=== PATIENT | female | born 1965 | race Caucasian/White ===

== ENCOUNTER 2018-10-05 09:17 | Day surgery (SDC) | payer BC, SELFPAY ==
[2018-10-05] VITALS (7 sets, daily range): BP systolic 107–131; BP diastolic 68–87; PULSE 67–87; RESP 16–18; TEMP 36.8–37; O2SAT 96–99; BMI 36.5
--- NOTE | 2018-10-05 09:42 | HP.PCM_ITS ---
History of Present Illness Date of Admission: 10/05/18 The patient is a 52 year old F here for screening colonoscopy. The patient reports no abdominal pain or blood in her stools. She has never had a colonoscopy in the past. She denies any family history of colon cancer. Past Medical/Surgical History - Planned Operation Planned Operative Procedure/s: COLONOSCOPY OPEN ACCESS Date of Operative Procedure: 10/05/18 Permit Signed: No S.O.S: No Is This Patient Having a Total Joint: No - Previous Hospitalizations/Surgeries HX Hospitalizations: No HX of Surgeries: CSECTION X3/TUBAL LIGATION Any Problems With Anesthesia: Yes - NAUSEA You/Your Family Experience Fever (Hyperthermia) With Anes: No Cholinesterase deficiency: No - Cardiovascular Hx Chest Pain within Last 2 months: No Hx of Irregular Heartbeat and/or Afib: No Hx Heart Attack: No Hx Congestive Heart Failure: No Hx Rheumatic Fever: No Hx Hypertension: No Hx Internal Defibrillator: No Hx Pacemaker: No Hx Cardiac Catheterization: No Hx Cardiac Surgery/Stents/Etc.: No Hx Stress Test: No HX Edema: Yes - ANKLE OCC Hx Pain in Legs when Walking/Leg Cramps: No - Respiratory Chronic Cough: No HX of Shortness of Breath: No Hoarseness: No Hx Chronic Obstructive Pulmonary Disease (COPD): No Hx Asthma: No Hx Emphysema: No Hx Sleep Apnea: No Hx Oxygen Use at Home: No Hx Respiratory Tract Infection/Cold (presently): No Do You Snore Loudly (louder than talking or can be heard): No Do You Often Feel Tired/ Fatigued/ Sleepy Dring Daytime?: No Has Anyone Observed You Stop Breathing During Sleep?: No Result (for STOP score): Negative Hx Smoking: No Smoking Status: Never smoker - Gastrointestinal Hx Gastroesophageal Reflux: No Hx Gastrointestinal Disorders: No Hx Gastrointestinal Bleed: No Hx Ulcer: No Hx Hiatal Hernia: No Difficulty Chewing/Swallowing: No Recent Onset of Swallowing Problems: No Special diet followed at home: No Hx Unplanned Weight Loss of 20#: No HX Unplanned Weight Gain of 20#: No - Neurological Hx Seizures: No HX Syncope/Blackout Spells/Unconsciousness: No Hx CVA/Stroke: No Hx Transient Ischemic Attacks (TIA): No Hx Multiple Sclerosis: No Hx Parkinson's Disease: No Hx Head/Neck Injury: No Hx Headaches: No Hx Back Injury/Pain: No Recent Onset of Speech Difficulty: No Restless Legs: No Does patient have nerve stimulator: No Patient instructed to have device shut off: No Rep notified?: No - Blood Disorder Hx Leukemia: No Bleeding Tendencies: No Hx Deep Vein Thrombosis: No Hx High Cholesterol: No Blood Transmitted Disease: No Hx Hepatitis: No Hx Cirrhosis: No Hx Anemia: No Hx Blood Disorders: No - Reproduction : No Is Patient Lactating: No Hx Hysterectomy: No Hx Tubal Ligation: Yes Are You Post Menopause: No - Genitourinary Hx Renal Disease: No - ONLY CHILD - Musculoskeletal Hx Arthritis: No Hx Rheumatoid Arthritis: No Hx Gout: No Recent Onset of an Orthopedic Problem: No - Endocrine Hx Diabetes: No Thyroid Disease: No Hx Steroid Therapy: No - Psycho/Social Hx Substance Use: No Hx Alcohol Use: No Hx Anxiety: Yes - IN THE PAST Hx Depression: Yes - IN THE PAST Mental Illness: No Hx Dementia: No - Miscellaneous Hx Cancer: No Recent Exposure to Contagious Disease: No Active MRSA: No Hx of C-Diff: No Any Loose Teeth: No Allergies No Known Allergies Allergy (Verified 10/04/18 15:12) - Discharge Is Pt Admitted From a [facility], or a Detention: No Who Could Help: FAMILY After D/C, Where Do you Plan to Go: Return Home - Physical Exam General: Alert, Oriented x3 Lungs: Normal air movement Cardiovascular: Regular rate, Regular Rhythm Abdomen: Soft, Non Tender, Non-Distended Assessment/Plan 52-year-old female for screening colonoscopy I explained endoscopy in detail to the patient. I explained the risks including but not limited to stroke or heart attack with anesthesia, perforation of the GI tract, bleeding, infection. I explained that any of these could necessitate further emergency surgery. The patient understands and all questions were answered sufficiently. The patient wishes to proceed with procedure. Denzel Donovan MD Pager: [facility] [address] [place] [address] [address] [place] [address] Office: Surgery Risks - Colonoscopy Risks Include but are not Limited To: Risks include but are not limited to: Bleeding, perforation requiring further surgery, inability to complete colonoscopy requiring barium enema.
--- NOTE | 2018-10-05 10:19 | OP.ENDO_ITS ---
Patient Name: Aleisha Azar Procedure Date: 10/05/2018 9:40 AM Date of : 1965 Age: 52 Procedure: Colonoscopy Indications: Screening for colorectal malignant neoplasm Providers: Denzel Donovan MD Medicines: Monitored Anesthesia Care Patient Profile: This is a 52 year old female. Refer to note in patient chart for documentation of history and physical. Last Colonoscopy: none. The patient's first colonoscopy is today. Complications: No immediate complications. Procedure: Pre-Anesthesia Assessment: - Prior to the procedure, a History and Physical was performed, and patient medications and allergies were reviewed. The patient's tolerance of previous anesthesia was also reviewed. The risks and benefits of the procedure and the sedation options and risks were discussed with the patient. All questions were answered, and informed consent was obtained. Prior Anticoagulants: The patient has taken no previous anticoagulant or antiplatelet agents. After reviewing the risks and benefits, the patient was deemed in satisfactory condition to undergo the procedure. After I obtained informed consent, the scope was passed under direct vision. Throughout the procedure, the patient's blood pressure, pulse, and oxygen saturations were monitored continuously. The colonoscope was introduced through the anus and advanced to the cecum, identified by appendiceal orifice and ileocecal valve. The colonoscopy was performed without difficulty. The patient tolerated the procedure well. The quality of the bowel preparation was good. Scope In: 9:58:42 AM Scope Withdrawal Time 0 hours 6 minutes 7 seconds Scope Out: 10:10:15 AM Total Procedure Duration Time 0 hours 11 minutes 33 seconds Findings: The entire examined colon appeared normal on direct and retroflexion views. Impression: - The entire examined colon is normal on direct and retroflexion views. - No specimens collected. Recommendation: - Discharge patient to home. - Resume previous diet. - Continue present medications. - Repeat colonoscopy in 10 years for screening purposes. Procedure Code(s): --- Professional --- 84265, PT, Colonoscopy, flexible; diagnostic, including collection of specimen(s) by brushing or washing, when performed (separate procedure) Diagnosis Code(s): --- Professional --- Z12.11, Encounter for screening for malignant neoplasm of colon CPT copyright 2017 [employer]. All rights reserved. The codes documented in this report are preliminary and upon auditing coder review may be revised to meet current compliance requirements. Denzel Donovan MD 10/05/2018 10:18:32 AM This report has been signed electronically. Number of Addenda: 0 Note Initiated On: 10/05/2018 9:40 AM
== END 2018-10-05 10:57 | disposition home or self-care (01) ==
LOC: EN 09:18 → AC 09:20
PROVIDERS: Family Provider Physician Assistant; PCP Physician Assistant; Referring Provider Surgery; Visit Provider Surgery
PROC: 0DJD8ZZ Inspection of Lower Intestinal Tract, Via Natural or Artificial Opening Endoscopic (ICD-10-PCS; CPT 45378; principal; 2018-10-05 09:55)
DX: Z12.11 Encounter for screening for malignant neoplasm of colon (principal)
CPT/HCPCS: 45378; J7120

== ENCOUNTER 2025-04-09 13:30 | Outpatient (CLI) | payer OTHER, SELFPAY ==
--- NOTE | 2025-04-09 13:30 | FLU_PTH ---
PATIENT: JARON HANCOCK [facility]: [facility] U#:[id number] AGE/SX: 59/F ROOM: RE04/09/[address]: Dr. Reilly Pina MD : 1965 BED: DIS: 04/09/2025 SPEC #: [id number] RECD: 04/09/25 13:45 STATUS: JAEL ESTER #: [id number] PATRICIA: 04/09/25 13:[address]: Reilly Pina DEPT: CYTOLOGY RECD BY: Geo Wiggins ENTERED: 04/09/25 15:27 SP TYPE: Fluid OTHR DR: BECKI Christianson Tissues: A - Thyroid gland, NOS B - Thyroid gland, NOS Procedures: Special Stain Group II Surgery Specimen Level IV Surgery Specimen Level V Cytospin Fluid HEADER OPERATION: Fine needle aspiration of right thyroid nodule x2 PRE-OP DIAGNOSIS: Right thyroid nodule TISSUE SUBMITTED: A- Right mid thyroid nodule, B- Right inferior thyroid nodule DIAGNOSIS CYTOLOGY A. Right mid thyroid nodule, FNA (cytospin, smear x4): . Nondiagnostic (TBS I). - Macrophages present, follicular cells not observed. Note: US gel artifact noted. B. Right inferior thyroid nodule, FNA (cytospin, smear x4): - Nondiagnostic (TBS I). - Blood is present, follicular cells not observed. CYTOLOGY STUDY Slides are reviewed. CYTOLOGY GROSS A. Received is 30 ml of pink-cloudy cytolyt with particles and 6 smears labeled with the patient's name and and designated per the requisition as Right inferior thyroid. Submitted for cytology and cytospin. B. Received is 30 ml of [id number] cytolyt with particles and 4 smears labeled with the patient's name and and designated per the requisition as Right mid thyroid nodule. Submitted for cytology and cytospin. 04/09/2025 CPT: 83784g3
== END 2025-04-09 23:59 | disposition home or self-care (01) ==
PROVIDERS: PCP Physician Assistant; Referring Provider Surgery; Visit Provider Surgery
DX: E04.1 Nontoxic single thyroid nodule (principal)
CPT/HCPCS: 88108; 88305; 88307; 88313

== ENCOUNTER → 2025-05-30 | Outpatient (CLI) | payer OTHER, SELFPAY ==
--- NOTE | 2025-05-30 09:00 | CYSPIN_PTH ---
PATIENT: JARON HANCOCK LOC: [facility] U#:[id number] AGE/SX: 59/F ROOM: RE05/30/[address]: Dr. Reilly Pina MD : 1965 BED: DIS: 05/30/2025 SPEC #: [id number] RECD: 05/30/25 09:30 STATUS: JAEL ESTER #: [id number] PATRICIA: 05/30/25 09:[address]: Reilly Pina DEPT: CYTOLOGY RECD BY: Geo Wiggins ENTERED: 05/30/25 10:38 SP TYPE: CYSPIN FL OTHR DR: BECKI Christianson Tissues: A - Thyroid gland, NOS B - Thyroid gland, NOS Procedures: Pap Stain (control) Special Stain Group II Diff Quik Stain (control) Cytospin Fluid Cytology Other HEADER OPERATION: Fine needle aspiration of right thyroid PRE-OP DIAGNOSIS: Right thyroid TISSUE SUBMITTED: A- Right inferior thyroid nodule, B- Right mid thyroid nodule DIAGNOSIS CYTOLOGY A. Right inferior thyroid, nodule, FNA (cytospin, smear x4): * Benign (TBS II). B. Right mid thyroid, nodule, FNA (cytospin, smear x4): * Benign (TBS II). COMMENT The specimen is evaluated at the time of biopsy by Dr. Holt. Immediate Evaluation = A - 1. Macrophages and blood. 3. Macrophages and blood. B- Few follicular cells and blood. Blood, rare macrophages. CYTOLOGY STUDY Slides are reviewed. CYTOLOGY GROSS A. Received is 30 ml of pink-cloudy cytolyt with particles and 4 smears labeled with the patient's name and and designated per the requisition as Right inferior thyroid nodule. Submitted for cytology and cytospin. B. Received is 30 ml of pink-cloudy cytolyt with particles and 4 smears labeled with the patient's name and and designated per the requisition as Right mid thyroid nodule. Submitted for cytology and cytospin. CPT: 37825p7,31090v5
== END | disposition home or self-care (01) ==
PROVIDERS: PCP Physician Assistant; Referring Provider Surgery; Visit Provider Surgery
DX: E04.1 Nontoxic single thyroid nodule (principal)
CPT/HCPCS: 88108; 88161; 88313